=== PATIENT | female | born 2000 | race Caucasian/White ===

== ENCOUNTER → 2018-07-04 15:58 | Outpatient (CLI) | payer OTHER, SELFPAY ==
--- NOTE | 2018-07-04 12:25 | TONS_PTH ---
PATIENT: MARYAN HARMON LOC: [facility] U#:[id number] AGE/SX: 25/F ROOM: RE07/04/[address]: Dr. 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 Organisms consistent with actinomyces. AM:jose 07/06/18 MICROSCOPIC DESCRIPTION Slides are reviewed. GROSS DESCRIPTION Received is one container labeled with the patient's name and designated tonsils - pin on right are two tonsils that in aggregate weigh 13.2 gm. The right tonsil has a pin on it and measures 3.2 x 2.5 x 2 cm. The left tonsil measures 3.5 x 2.8 x 2 cm. Both tonsils are similar in appearance. The external surfaces are pink-willett, smooth, glistening and somewhat lobulated. Focally they are hemorrhagic, granular and bear cautery artifact. Serial cross sections through the tonsils reveal normal tonsillar architecture. Sections are submitted in two cassettes as follows: 1 - right tonsil, 2 - left tonsil. / SJ:jose 07/05/18 TC:Luis CPT: 59079 x2
== END ==
PROVIDERS: Visit Provider Otolaryngology
DX: J35.01 Chronic tonsillitis (principal)
CPT/HCPCS: 88304